=== PATIENT | male | born 1985 | race Caucasian/White ===

== ENCOUNTER 2016-06-25 05:40 | Outpatient (CLI) | payer BC ==
[~2016-06-25] VITALS: Ht 175.3 cm; Wt 97.5 kg
[2016-06-25] MEDS ORDERED: PANT40TA2 PO (14:21)
[2016-06-25] MEDS ORDERED: FEXO180T84 PO (14:21)
[2016-06-25] MEDS ORDERED: BUDE8.43 NS (14:21)
== END 2016-06-25 14:25 ==
LOC: PREOP 05:40
PROVIDERS: ATTEND Surgery Pediatric Surgery
DX: Z01.818 Encounter for other preprocedural examination (principal); K21.9 Gastro-esophageal reflux disease without esophagitis

== ENCOUNTER 2016-06-27 10:07 | Day surgery (SDC) | payer BC ==
[~2016-06-27] VITALS: Ht 175.3 cm; Wt 97.5 kg
[~2016-06-27 10:07] MED LIST: BUDE8.43 NS; FEXO180T84 PO; PANT40TA2 PO
--- OUTSIDE RECORDS SUMMARY | 2016-06-27 10:11 | XMS REPORT | Continuity of Care Document ---
Author Author [facility] Organization [facility] Address Unknown Phone Unavailable Support Name Relationship Address Phone LISSET STEVENS MD Caregiver [address] [address] Insurance Providers Payer Name Policy Number Subscriber Name Relationship [facility] [id number] Charles Ballard 19 Self / Same As Patient Advance Directives Directive Response Recorded Date/Time Advance Directives No 06/25/16 2:21pm Resuscitation Status Full Code 06/25/16 2:21pm Problems No problem information available. Medications Current Home Medications Medication Dose Units Route Directions Days/Qty Instructions Start Date Pantoprazole Sodium 40 Mg 40 Mg Oral Daily 06/25/16 Fexofenadine Hcl 180 Mg 180 Mg Oral Daily 06/25/16 Budesonide 8.43 Ml 1 [place] Nasal Daily 06/25/16 Social History Social History Problem Response Recorded Date/Time Alcohol Use Rarely Uses 06/25/2016 2:21pm Recreational Drug Use No 06/25/2016 2:21pm Recent Foreign Travel No 06/25/2016 2:23pm Recent Infectious Disease Exposure No 06/25/2016 2:23pm Smoking Status Never a Smoker 06/25/2016 2:21pm Recent Hopitalizations No 06/25/2016 2:21pm Query Response Start Date Stop Date Smoking Status Never a Smoker Hospital Discharge Instructions No hospital discharge instructions. Plan of Care Discharge Date 06/25/16 2:25pm Prescriptions See Medication Section Functional Status No functional status results. Allergies, Adverse Reactions, Alerts Allergen Type Severity Reaction Status Last Updated Erythromycin base Allergy Unknown Active 06/25/16 Immunizations No immunization records. Vital Signs Acute Vital Signs Vital Response Date/Time Height (Feet) 5 feet 06/25/2016 2:23pm Height (Inches) 9.00 inches 06/25/2016 2:23pm Height (Calculated Centimeters) 175.557289 cm 06/25/2016 2:23pm Weight (Pounds) 215 pounds 06/25/2016 2:23pm Weight (Ounces) 0.0 oz 06/25/2016 2:23pm Weight (Calculated Grams) 77276.36 gm 06/25/2016 2:23pm Weight (Calculated Kilograms) 97.684585 kilograms 06/25/2016 2:23pm Calculated BMI 31.8 06/25/2016 2:23pm Results No known relevant diagnostic tests, laboratory data and/or discharge summary. Procedures No known history of procedures. Encounters Encounter Location Arrival/Admit Date Discharge/Depart Date Attending Provider Departed Clinic [facility] 06/25/16 5:40am 06/25/16 2: 25pm LISSET STEVENS MD
--- OUTSIDE RECORDS SUMMARY | 2016-06-27 10:11 | XMS REPORT | Continuity of Care Document ---
Author Author [facility] Organization [facility] Address Unknown Phone Unavailable Support Name Relationship Address Phone LISSET STEVENS MD Caregiver [address] [facility] [address] Insurance Providers Payer Name Policy Number Subscriber Name Relationship [facility] [id number] Charles Ballard 19 Self / Same As [...] Oral Daily 06/25/16 Budesonide 8.43 Ml 1 [place] Nasal Daily 06/25/16 Social History Social History [...] 9.00 inches 06/25/2016 2:23pm Height (Calculated Centimeters) 175.933811 cm 06/25/2016 2:23pm Weight (Pounds) 215 pounds 06/25/2016 2:23pm Weight (Ounces) 0.0 oz 06/25/2016 2:23pm Weight (Calculated Grams) 44217.36 gm 06/25/2016 2:23pm Weight (Calculated Kilograms) 97.659032 kilograms 06/25/2016 2:23pm Calculated BMI 31.8 06/25/2016 2:23pm Results No known relevant diagnostic tests, laboratory data and/or discharge summary. Procedures No known history of procedures. Encounters Encounter Location Arrival/Admit Date Discharge/Depart Date Attending Provider Departed Clinic [facility] 06/25/16 5:40am 06/25/16 2: 25pm LISSET STEVENS MD
[2016-06-27] MEDS ORDERED: LIDOCAINE JELLY 2% (XYLOCAINE) 5 ML TUBE MM PRN (10:30)
[2016-06-27] MEDS ORDERED: NS IV 500 ML 500 ML IV SCH (10:30)
[2016-06-27] MEDS ORDERED: FLUMAZENIL (ROMAZICON) 0.1 MG/ML 5 ML VIAL INJ PRN (10:30)
[2016-06-27] MEDS ORDERED: HURRICAINE EXT TUBE (BENZOCAINE) XX PRN (10:30)
[2016-06-27] MEDS ORDERED: NALOXONE 0.4 MG/ML 1 ML (NARCAN) VIAL IVP PRN (10:30)
[2016-06-27 10:32] VITALS: BP 129/87
[2016-06-27] MEDS ORDERED: MIDAZOLAM 2 MG/2 ML (VERSED) VIAL ONE ×4 (10:43)
[2016-06-27] MEDS ORDERED: LIDOCAINE JELLY 2% (XYLOCAINE) 5 ML TUBE ONE (10:44)
[2016-06-27] MEDS ORDERED: fentaNYL INJECTION 100 MCG/2 ML AMP ONE (10:44)
[2016-06-27] MEDS ORDERED: HURRICAINE EXT TUBE (BENZOCAINE) ONE (10:44)
--- NOTE | 2016-06-27 10:47 | Conscious Sedation/ASA ---
Conscious Sedation Pre-Proced Time Reviewed: 10:30 ASA Class: 1 Airway Mallampati Classification: ([place] appropriate class) I. II. III, IV Lungs Heart ASA score ASA 1: a normal healthy patient ASA 2: a patient with a mild systemic disease (mid diabetes, controlled hypertension, obesity ASA 3: a patient with a severe systemic disease that limits activity (angina , COPD, prior Myocardial infarction) ASA 4: a patient with an incapacitating disease that is a constant threat to life (CHF, renal failure) ASA 5: a moribund patient not expected to survive 24 hrs. (ruptured aneurysm) ASA 6: a declared brain patient whose organs are being harvested. For emergent operations, add the letter E after the classification Grade 2 Sedation Plan: Analgesia, Amnesia, Plan communicated to team members, Discussed options with patient/fam, Discussed risks with patient/fam Note The patient is an appropriate candidate to undergo the planned procedure, sedation, and anesthesia. The patient immediately re-assessed prior to indication. LISSET STEVENS MD Jun 27, 2016 10:47 am
--- NOTE | 2016-06-27 10:48 | Progress Note-Pre Operative ---
Pre-Operative Progress Note H&P Reviewed The H&P was reviewed, patient examined and no changes noted. Date H&P Reviewed: Jun 27, 2016 Time H&P Reviewed: 10:30 Pre-Operative Diagnosis: epigastric pain, GERD, PUD LISSET STEVENS MD Jun 27, 2016 10:48 am
[2016-06-27] MEDS ORDERED: morphine INJ 10 MG/ML 1ML (SYR OR VIAL) IV PRN (11:00)
[2016-06-27] MEDS ORDERED: ACETAMINOPHEN 325 MG TABLET/CAPLET (TYLENOL) PO PRN (11:00)
[2016-06-27] MEDS ORDERED: HYDROcodone/APAP 5 MG/325 MG (LORTAB) TAB PO PRN (11:00)
[2016-06-27] MEDS ORDERED: ONDANSETRON 4 MG/2 ML (SDV) Z0FRAN IV PRN (11:00)
[2016-06-27] MEDS: fentaNYL INJECTION 100 MCG/2 ML AMP IVP PRN ×2 (11:12→11:25)
[2016-06-27] MEDS: MIDAZOLAM 2 MG/2 ML (VERSED) VIAL IVP PRN ×4 (11:13→11:30)
--- NOTE | 2016-06-27 11:51 | Progress Note-Post Operative ---
Post-Operative Progess Note Pre-Operative Diagnosis epigastric pain, GERD, PUD Post-Operative Diagnosis reflux esophagitis(class B), small HH(2cm), mild-moderate gastritis, no prominent rugal folds, no duodenal masses Post-Op Procedure Note Date of Procedure: Jun 27, 2016 Name of Procedure: EGD with bx Anesthesia Type CS Estimated blood loss (mL): minimal Specimen(s) collected antrum, GE ILSSET STEVENS MD Jun 27, 2016 11:51 am
[2016-06-27] MEDS ORDERED: DEXL60CA PO (11:53)
[2016-06-27] MEDS ORDERED: SUCR1TAB36 PO (11:53)
--- NOTE | 2016-06-27 11:54 | Discharge Inst-Surgical ---
D/C Lap Instructions-KIDO New, Converted, or Re-Newed RX: RX on Chart Follow Up PRN Activity as tolerated High Fiber Diet 25g or more per day Avoid Alcohol, Caffeine, Spicy Froid and Acid foods. Drink 64 fluid oz or more of fluids per day. Symptoms to Report: Fever over 101 degree F, Nausea/Vomiting If any problems/questions: Contact your physician or go to Emergency Room LISSET STEVENS MD Jun 27, 2016 11:54 am
[2016-06-27 12:10] VITALS: BP 126/72
[2016-06-27 12:30] VITALS: BP 118/82
[2016-06-27 12:37] VITALS: BP 118/82
--- NOTE | 2016-06-29 13:24 | OPERATIVE REPORT ---
PROCEDURE PHYSICIAN: LISSET STEVENS DATE OF PROCEDURE: 06/27/2016 ATTENDING PRIMARY CARE PHYSICIAN: Dr. Shoemaker HISTORY OF PRESENT ILLNESS: Reflux esophagitis, regurgitation. He reports that his mother was diagnosed with a pancreatic cancer. He does not report any symptoms of polyuria or polydipsia, as well as no bone pain to indicate any signs or symptoms of hypercalcemia. He is currently undergoing testing for possible multiple endocrine neoplasia syndrome type I. PREOPERATIVE DIAGNOSES: 1. Gastroesophageal reflux disease. 2. Peptic ulcer disease. POSTOPERATIVE DIAGNOSES: 1. Reflux esophagitis class B. 2. Small hiatal hernia, approximately 2 to 2.5 cm in size. 3. Mild to moderate gastritis. 4. There were no increased rugal folds to indicate a Oliverio-Michelle syndrome. PROCEDURE: EGD with biopsy. SURGEON: Dr. Stevens. ANESTHESIA: Conscious sedation. ESTIMATED BLOOD LOSS: Minimal. FINDINGS: 1. Reflux esophagitis, class B. 2. No ulcers or strictures. 3. Small hiatal hernia, approximately 2 to 2.5 cm in size. 4. Mild to moderate gastritis with no ulcerations. 5. The pylorus and duodenum appeared normal. No masses within the duodenum. DISPOSITION: The patient tolerated the procedure well. PROCEDURE: The patient was brought to the endoscopy suite, laid in the left lateral decubitus position. After adequate IV pain and sedative medications and conscious sedation anesthesia, the mouthpiece was applied. The endoscope was placed in the mouth, visualizing the pharynx and hypopharyngeal region. Vocal cords, epiglottis and vallecula identified and appeared to be normal. The endoscope was then gently intubated into the esophageal opening and the esophagus insufflated. The endoscope was then advanced through the first, second, and 3rd portions esophagus. At the level of the GE junction, a reflux esophagitis, class B identified. There were no ulcers or strictures identified in this region. A biopsy was taken with forceps of visualization of good hemostasis. The endoscope was then easily advanced to the stomach and the endoscope retroflexed visualizing a small hiatal hernia, approximately 2 to 2.5 cm in size. There was a mild to moderate gastritis more towards the stomach antrum. There were no hypertrophic rugal folds to indicate any obvious of Oliverio-Michelle syndrome. Biopsies were taken of the stomach antrum, with visualization of good hemostasis. The endoscope was then advanced through the pylorus and into the first and second portions of duodenum. These segments were normal. There were no abnormal lesions identified in the duodenum as well. The endoscope was then slowly withdrawn while taking a second look and suctioning residual air with no additional findings. The patient tolerated the procedure well. We will have him continue with medical management with the necessary lifestyle and diet accommodation including smaller, more frequent meals, avoidance of eating at night, as well as head elevation while lying supine. He also needs to decrease his of caffeinated beverage intake, as well as spicy, greasy and acidic foods. We will also proceed with a trial of Dexilant 60 mg daily, as well as Carafate 1 gram q.i.d. for the next 2 weeks then on a p.r.n. basis. Job ID: [id number] Dictated Date: 06/27/2016 11:43:40 Channel Program Manager Date: 06/29/2016 13:13:11 / joey
== END 2016-06-27 12:38 | disposition home or self-care (01) ==
LOC: ENDO 10:07
PROVIDERS: ATTEND Surgery Pediatric Surgery
DX: K21.0 Gastro-esophageal reflux disease with esophagitis (principal); K44.9 Diaphragmatic hernia without obstruction or gangrene; K29.70 Gastritis, unspecified, without bleeding
CPT/HCPCS: 88305; 88342